=== PATIENT | female | born 2005 | race African-American/Black ===

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

== ENCOUNTER 2023-09-30 11:03 | Emergency (ER) | payer OTHER, SELFPAY ==
--- NOTE | ~2023-09-30 | CT_ITS ---
EXAMINATION: CT abdomen pelvis w con DATE: 09/30/2023 12:50 INDICATION: Abdominal pain and fever TECHNIQUE: Computed tomography (CT) of the abdomen and pelvis was performed with 100 mL Omnipaque-350 intravenous contrast. Automated exposure control and iterative reconstruction technique were employe d. The dose-length product was 785.62 mGy-cm. COMPARISON: 10/29/2020 FINDINGS: Lung bases are clear. Heart size is normal. No pericardial or pleural effusion. Liver, gallbladder, s pleen, pancreas, bilateral adrenal glands and kidneys are normal. Bowels including the appendix are n ormal. Bladder, anteverted uterus and bilateral adnexa are normal. No free intraperitoneal gas or flu id. No pathologically enlarged abdominal or pelvic lymphadenopathy. Mild thoracolumbar dextrocurvatur e. IMPRESSION: 1. No acute intra-abdominal/pelvic process. Reviewed, dictated and finalized at location A.
--- NOTE | 2023-09-30 11:13 | ED_ITS ---
HPI - Nausea/Vomiting/Diarrhea General Chief complaint: Nausea/Vomiting/Diarrhea Stated complaint: nausea Time Seen by Provider: 09/30/23 11:06 History of Present Illness HPI Narrative: 17-year-old female no medical problems presents to the emergency room for evaluation of abdominal pain. Patient was referred urgent care for evaluation of abdominal pain that she has had for 5 days. Pain is associated multiple episodes of vomiting. States that she had a fever 4 days ago. Patient denies any alleviating or aggravating factors. Related Data Home Medications Medication Instructions Recorded Confirmed ferrous sulfate 325 mg (65 mg mg 07/04/21 iron) tablet (FeroSul) azelastine 0.05 % eye drops drp 06/19/22 Allergies Allergy/AdvReac Type Severity Reaction Status Date / Time No Known Allergies Allergy Verified 11/24/22 14:05 Review of Systems Review of Systems: ROS unremarkable except for noted in HPI PMFSH Past Medical History Medical History Healthy female adolescent Social History Social History Smoking status: Never smoker Gender identity (if verbalized by the patient): Female Exam 2 Narrative: GENERAL: Well-appearing, well-nourished, no physical limitations, and in no acute distress. HEAD: Normocephalic, atraumatic. EYES: Conjunctivae normal, PERRLA and EOMI. CHEST: Clear to auscultation. No respiratory distress. No wheezes rales or rhonchi. HEART: Regular rate and rhythm. No murmur heard. Normal peripheral pulses. ABDOMEN: Soft, periumbilical tenderness, nondistended, normal active bowel sounds. BACK: No CVA tenderness EXTREMITIES: Normal range of motion. No edema. No clubbing or cyanosis SKIN: Warm, dry, no rash. No noted wounds NEURO: No focal deficits. Alert and oriented x3. MAEW. CN's II-XI intact bilaterally, normal gait PSYCH: Cooperative. Normal mood and affect. MDM - Nausea/Vomiting/Diarrhea Imaging Data Radiologist's impression: Impressions Abdomen/Pelvis CT 09/30/23 12:55 IMPRESSION: 1. No acute intra-abdominal/pelvic process. Discharge Plan Discharge Clinical Impression: Gastroenteritis Patient Disposition: Home, Self-Care Condition: Stable Instructions: Antibiotic Form, Acute Nausea and Vomiting (ED) Prescriptions: New ondansetron 4 mg tablet,disintegrating 4 mg PO Q8H Qty: 10 0RF No Action ferrous sulfate [FeroSul] 325 mg (65 mg iron) tablet azelastine 0.05 % drops amoxicillin-pot clavulanate 875-125 mg tablet 1 tablet PO Q12H 7 Days Qty: 14 0RF clindamycin HCl 300 mg capsule 300 mg PO Q8H Qty: 21 0RF methylprednisolone [Medrol (Isai)] 4 mg tablets,dose pack 4 mg PO DAILY Qty: 21 0RF fluticasone propionate [Flonase Allergy Relief] 50 mcg/actuation spray,suspension 1 spray intranasal DAILY Qty: 16 0RF Rx Instructions: administer into each nostril Follow-up/Referrals: Rochelle Hercules APRN [Advanced Practice Nurse] - Time of Disposition: 13:02
[2023-09-30 11:14] VITALS: BP 136/89; PULSE 97; RESP 20; O2SAT 100
[2023-09-30] MEDS: SODIUM CHLORIDE 0.9% IV 1,000 ML 999 ML IV CONT (11:30)
[2023-09-30 11:35] VITALS: BP 146/92; PULSE 95; RESP 20; TEMP 36.7; O2SAT 100
[2023-09-30 11:41] LABS: Basophils Percent Auto 0.5 % (0.2-1.2); Eosinophils Percent Auto 0.8 % (0-4.4); Hematocrit 37.4 % (37.0-47.0); Hemoglobin 10.7 g/dL (12.0-15.0); Immature Granulocyte Absolute 0.02 K/mm3 (0.00-0.031); Immature Granulocyte Percent A 0.5 % (0-0.5); Immature Platelet Fraction Pct 3.6 % (0.9-11.2); Lymphocytes Absolute Auto 1.32 K/mm3 (0.9-3.2); Lymphocytes Percent Auto 36.1 % (18.3-44.2); Mean Corpuscular HGB Conc 28.6 g/dl (32-36); Mean Corpuscular Hemoglobin 18.9 pg (26-34); Mean Platelet Volume 10.2 fl (7.4-10.4); Monocytes Absolute Auto 0.3 K/mm3 (0.1-0.6); Monocytes Percent Auto 7.1 % (2.6-8.5); Platelet Count Result 295 k/mm3 (150-375); Red Blood Count 5.67 M/mm3 (4.2-5.4); Red Cell Distribution Width 19.3 % (11.5-14.5); White Blood Count 3.7 K/mm3 (4.5-10.0)
[2023-09-30 11:50] LABS: Appearance Urine Cloudy (Clear); Bacteria Urine 2+ /hpf; Bilirubin Urine Negative (Negative); Blood Urine Negative (Negative); Color Urine Dark Yellow (Yellow); Glucose Urine UA Negative (Negative); Ketones Urine Trace mg/dL (Negative); Leukocyte Esterase Ur Trace LEU/UL (Negative); Nitrate Urine Negative (Negative); Protein Urine Trace mg/dL (Negative); RBC Urine 0-2 /hpf (0-2); Squamous Epithelial Cell Urine Many /hpf (Few); pH Urine 6.5 (5.0-9.0)
[2023-09-30 11:51] LABS: Add Urine Microscopic? YES; Specific Grav Ur 1.031 (1.001-1.035)
[2023-09-30 12:16] LABS: Anisocytosis 1+; Hypochromasia 1+; Microcytosis 1+ (NORMAL); Platelet Estimate Adequate (Adequate); Schistocytes Rare
[2023-09-30 12:32] LABS: Alanine Aminotransferase 12 U/L (6-35); Albumin Level 3.5 g/dL (3.7-5.6); Alkaline Phosphatase 64 U/L (45-116); Anion Gap 4 mmol/L (4-12); Aspartate Amino Transferase 16 U/L (14-36); Bilirubin,Total 0.4 mg/dL (0.2-1.3); Blood Urea Nitrogen 7 mg/dL (8-21); Carbon Dioxide 25 mmol/L (22-30); Chloride 109 mmol/L (98-107); Estimated Glomerular Filt Rate > 60; Glucose 92 mg/dL (65-110); Lipase 27 U/L (23-300); Potassium 3.7 mmol/L (3.4-5.0); Sodium 138 mmol/L (134-143)
[2023-09-30 13:09] VITALS: BP 136/78; PULSE 92; RESP 19; O2SAT 99
== END 2023-09-30 13:11 | disposition home or self-care (01) ==
PROVIDERS: Emergency Provider Nurse Practitioner Family
DX: K52.9 Noninfective gastroenteritis and colitis, unspecified (principal)
CPT/HCPCS: 36415; 74177; 80053; 81001; 81025; 83690; 85025; 85055; 87086; 96360; 99284; J7030; Q9967

== ENCOUNTER 2023-10-15 08:27 | Emergency (ER) | payer OTHER, SELFPAY ==
[2023-10-15 08:43] VITALS: BP 130/92; PULSE 96; RESP 18; TEMP 36.6; O2SAT 100
--- NOTE | 2023-10-15 09:21 | ED.ALCOHOL ---
HPI - Alcohol General Chief Complaint: Alcohol Stated Complaint: comments to PD wanting to harm self Time Seen by Provider: 10/15/23 09:12 Source: patient and EMS Mode of arrival: EMS Limitations: intoxication History of Present Illness HPI narrative: This is a 18 year old female that presents to the ER for suicidal ideation. Reportedly patient was in a dispute with her sister. PD was called. She reported some suicidal thoughts which prompted them to bring her in for evaluation. Reports no suicidal ideation currently. Does report history of overdose attempt on pills. She does not currently take any medications for anxiety or depression. Patient had been drinking alcohol last night. No previous psychiatric hospitalizations. Related Data Home Medications Medication Instructions Recorded Confirmed ferrous sulfate 325 mg (65 mg mg 07/04/21 iron) tablet (FeroSul) azelastine 0.05 % eye drops drp 06/19/22 Allergies Allergy/AdvReac Type Severity Reaction Status Date / Time No Known Allergies Allergy Verified 11/24/22 14:05 Review of Systems Review of Systems: CONSTITUTIONAL: Denies fever GASTROINTESTINAL: Denies abdominal pain, nausea, vomiting PSYCHIATRIC: Reports depression. All systems reviewed & are unremarkable except as noted in HPI and below PMFSH Past Medical History Medical History Healthy female adolescent Social History Social History (Updated 10/15/23 @ 09:26 by Lary Yousif PA-C) Smoking status: Never smoker Alcohol intake: current Gender identity (if verbalized by the patient): Female Exam Narrative: GENERAL: Well-appearing, well-nourished, and in no acute distress. HEAD: Normocephalic, atraumatic. EYES: EOMI. CHEST: No respiratory distress. HEART: Regular rate EXTREMITIES: Normal range of motion. No edema. SKIN: Warm, dry, no rash. NEURO: No focal deficits. Alert and oriented x3. PSYCH: Normal mood and affect Course Course Emergency Course: patient is medically cleared for evaluation by crisis Vital Signs Vital signs: Vital Signs Temperature 97.9 F 10/15/23 08:43 Pulse Rate 96 10/15/23 08:43 Respiratory Rate 18 10/15/23 08:43 Blood Pressure 130/92 H 10/15/23 08:43 Pulse Oximetry 100 10/15/23 08:43 Oxygen Delivery Room Air 10/15/23 08:43 Temperature 98.6 F 10/15/23 15:20 Pulse Rate 78 10/15/23 15:20 Respiratory Rate 16 10/15/23 15:20 Blood Pressure 113/69 10/15/23 15:20 Pulse Oximetry 99 10/15/23 15:20 Oxygen Delivery Room Air 10/15/23 08:43 MDM - Alcohol MDM Narrative Medical decision making narrative: Patient presents to the emergency department with reported suicidal ideations. Patient was intoxicated upon arrival. Once sober she denied any thoughts of harming herself her acting on it. Her vitals are stable. Alcohol level initially 217. No other concerning findings on laboratory evaluation. Patient was evaluated by crisis. Safety plan is in place and she was given resources. She was given warnings to return to the ER Differential Diagnosis Differential diagnosis: Likely alcohol intoxication and other (suicidal ideation, depression, anxiety) Lab Data Attestation: I reviewed the patient's lab results. 10/15/23 09:16 10/15/23 09:16 Labs: Lab Results 10/15/23 10/15/23 10/15/23 Range/Units 09:16 09:17 09:19 WBC 5.0 (4.5-10.0) K/mm3 RBC 5.76 H (4.2-5.4) M/mm3 Hgb 11.0 L (12.0-15.0) g/dL Hct 38.8 (37.0-47.0) % MCV 67.4 L (80-100) fl MCH 19.1 L (26-34) pg MCHC 28.4 L (32-36) g/dl RDW 20.1 H (11.5-14.5) % Plt Count 330 (150-375) k/mm3 MPV 9.4 (7.4-10.4) fl Immature Gran % (Auto) 0.4 (0-0.5) % Neut % (Auto) 52.2 (45.5-73.1) % Lymph % (Auto) 38.8 (18.3-44.2) % [place] % (Auto) 8.2 (2.6-8.5) % Eos % (Auto) 0.2 (0-4.4) % Baso % (Auto) 0.2
[2023-10-15 09:25] LABS: Basophils Percent Auto 0.2 % (0.2-1.2); Eosinophils Percent Auto 0.2 % (0-4.4); Hematocrit 38.8 % (37.0-47.0); Immature Granulocyte Absolute 0.02 K/mm3 (0.00-0.031); Immature Granulocyte Percent A 0.4 % (0-0.5); Lymphocytes Absolute Auto 1.94 K/mm3 (0.9-3.2); Lymphocytes Percent Auto 38.8 % (18.3-44.2); Mean Corpuscular HGB Conc 28.4 g/dl (32-36); Mean Corpuscular Hemoglobin 19.1 pg (26-34); Mean Corpuscular Volume 67.4 fl (80-100); Mean Platelet Volume 9.4 fl (7.4-10.4); Monocytes Absolute Auto 0.4 K/mm3 (0.1-0.6); Monocytes Percent Auto 8.2 % (2.6-8.5); Neutrophils Absolute Auto 2.6 K/mm3 (1.3-6.7); Neutrophils Percent Auto 52.2 % (45.5-73.1); Platelet Count Result 330 k/mm3 (150-375); Red Blood Count 5.76 M/mm3 (4.2-5.4); Red Cell Distribution Width 20.1 % (11.5-14.5)
[2023-10-15 09:39] LABS: Ethanol 217 mg/dL (<10)
[2023-10-15 09:40] LABS: Alanine Aminotransferase 11 U/L (6-35); Albumin Level 4.5 g/dL (3.5-5.1); Alkaline Phosphatase 72 U/L (38-126); Anion Gap 9 mmol/L (4-12); Aspartate Amino Transferase 20 U/L (14-36); Bilirubin,Total 0.4 mg/dL (0.2-1.3); Blood Urea Nitrogen 7 mg/dL (7-17); Calcium 8.7 mg/dL (8.4-10.2); Carbon Dioxide 24 mmol/L (22-30); Chloride 112 mmol/L (98-107); Estimated Glomerular Filt Rate > 60; Glucose 94 mg/dL (65-110); Potassium 4.2 mmol/L (3.4-5.0); Sodium 145 mmol/L (137-145)
[2023-10-15 09:54] LABS: Hypochromasia 1+; Platelet Estimate Adequate (Adequate); Poikilocytosis 1+
[2023-10-15 09:55] LABS: Anisocytosis 1+; Schistocytes Rare
[2023-10-15 10:03] LABS: Appearance Urine Clear (Clear); Bilirubin Urine Negative (Negative); Blood Urine Negative (Negative); Color Urine Yellow (Yellow); Glucose Urine UA Negative (Negative); Ketones Urine Negative (Negative); Leukocyte Esterase Ur Negative LEU/UL (Negative); Nitrate Urine Negative (Negative); Protein Urine Negative (Negative); Specific Grav Ur 1.011 (1.001-1.035); Urobilinogen Urine 0.2 mg/dL (<2.0); pH Urine 5.5 (5.0-9.0)
[2023-10-15 10:03] LABS: Influenza A QL RT-PCR Negative (Negative); Influenza B QL RT-PCR Negative (Negative); RSV RNA, RT-PCR Negative (Negative); SARS-CoV-2 RNA PCR Negative (Negative)
[2023-10-15 10:50] LABS: Barbiturate Screen Urine Negative (Negative); Benzodiazepines Screen Urine Negative (Negative)
[2023-10-15 10:51] LABS: Cannabinoid Screen Urine Negative (Negative); Cocaine Screen Urine Negative (Negative); Methadone Screen Urine Negative (Negative); Opiate Screen Urine Negative (Negative); Phencyclidine Screen Urine Negative (Negative)
[2023-10-15 10:54] LABS: Amphetamine Screen Urine Negative (Negative)
[2023-10-15 11:55] LABS: Add Urine Microscopic? NO
[2023-10-15 15:20] VITALS: BP 113/69; PULSE 78; RESP 16; TEMP 37; O2SAT 99
--- NOTE | 2023-10-15 15:25 | PC.NURSE ---
Patient gave verbal consent to update mom about pt condition.
[2023-10-15 17:00] LABS: Ethanol 83 mg/dL (<10)
--- NOTE | 2023-10-15 17:11 | PC.NURSE ---
Crisis contacted to evaluate patient.
== END 2023-10-15 20:07 | disposition home or self-care (01) ==
PROVIDERS: Family Medicine; Emergency Provider Physician Assistant
DX: R45.851 Suicidal ideations (principal); F10.920 Alcohol use, unspecified with intoxication, uncomplicated; Y90.7 Blood alcohol level of 200-239 mg/100 ml; Z11.52 Encounter for screening for COVID-19
CPT/HCPCS: 36415; 80053; 80307; 81003; 81025; 84443; 85025; 87637; 99284

== ENCOUNTER 2024-12-21 01:26 | Emergency (ER) | payer OTHER, SELFPAY ==
[2024-12-21] VITALS (15 sets, daily range): BP systolic 103–132; BP diastolic 59–89; PULSE 66–109; RESP 16–24; TEMP 36–36.6; O2SAT 98–100
--- NOTE | 2024-12-21 01:38 | ECG_ITS ---
Test Date: 2024-12-21 02:05:31 Measurements Intervals [place] Rate: 104 P: 41 MA: 140 QRS: 34 QRSD: 92 T: 32 QT: 313 QTc: 413 Interpretive Statements SINUS TACHYCARDIA POSSIBLE LEFT ATRIAL ENLARGEMENT POSSIBLE ANTERIOR MYOCARDIAL INFARCTION , OF INDETERMINATE AGE BASELINE ARTIFACT- I, III, AVL, V2 ABNORMAL ECG No previous ECG available for comparison Electronically Signed On 12-21-2024 06:23:34 CDT by Vinh Maher D.O.
[2024-12-21 01:47] LABS: Hematocrit 35.3 % (37.0-47.0); Hemoglobin 10.2 g/dL (12.0-15.0); Immature Granulocyte Percent A 0.2 % (0-0.5); Lymphocytes Absolute Auto 1.44 K/mm3 (0.9-3.2); Mean Corpuscular HGB Conc 28.9 g/dl (32-36); Mean Corpuscular Hemoglobin 19.2 pg (26-34); Mean Corpuscular Volume 66.6 fl (80-100); Nucleated Red Blood Cells Absolute Auto 0.000 K/mm3 (0.0-0.012); Nucleated Red Blood Cells Perc 0.0 % (0.0-0.2); Platelet Count Result 226 k/mm3 (150-375); Red Blood Count 5.30 M/mm3 (4.2-5.4); White Blood Count 4.7 K/mm3 (4.5-10.0)
[2024-12-21 02:00] LABS: Alanine Aminotransferase 13 U/L (6-35); Albumin Level 4.3 g/dL (3.5-5.1); Alkaline Phosphatase 78 U/L (38-126); Anion Gap 10 mmol/L (4-12); Aspartate Amino Transferase 18 U/L (14-36); Band Neutrophils Percent 0 % (0-6); Bilirubin,Total 0.5 mg/dL (0.2-1.3); Blood Urea Nitrogen 3 mg/dL (7-17); Calcium 9.4 mg/dL (8.4-10.2); Carbon Dioxide 21 mmol/L (22-30); Chloride 104 mmol/L (98-107); Estimated CRCL calculation 143 ml/min; Estimated Glomerular Filt Rate > 60; Glucose 101 mg/dL (65-110); Hypochromasia 1+; Ovalocytes 1+; Potassium 3.8 mmol/L (3.4-5.0); Schistocytes None Seen; Sodium 135 mmol/L (137-145); Total Protein 7.6 g/dL (6.3-8.2)
[2024-12-21 02:02] LABS: Acetaminophen < 10 ug/mL (10-30); Salicylate < 1.0 mg/dL (2-20)
[2024-12-21 02:05] LABS: Add Urine Microscopic? NO; Appearance Urine Clear (Clear); Glucose Urine UA Negative (Negative); Leukocyte Esterase Ur Negative LEU/UL (Negative); Nitrate Urine Negative (Negative); Specific Grav Ur 1.007 (1.001-1.035)
[2024-12-21 02:16] LABS: BEDSIDEPREGUCG Negative (Negative)
[2024-12-21 02:20] LABS: Cannabinoid Screen Urine Negative (Negative)
[2024-12-21 02:32] LABS: Thyroid Stimulating Hormone 3.110 uIU/mL (0.465-4.680)
--- OUTSIDE RECORDS SUMMARY | 2024-12-21 02:37 | XMS_ITS | Clinical Summary ---
Author Organization [facility] [place] [address] Address [address] [place] [id number] Care Team Providers Care Fabrication And Assembly Supervisor Name Role Phone Rochelle Hercules CONSTRUCTION CRAFT LABORER Unavailable [phone] Florentin Kincaid NP Primary Care Provider [phone] Allergies No known active allergies Medications albuterol HFA (PROVENTIL HFA,VENTOLIN HFA,PROAIR HFA) 90 mcg/actuation inhalerIndicati ons:Acute Asthma Attack Inhale 4 puffs every 4 (four) hours as needed for wheezing or shortness of breath 1 Inhaler 1 Active cyproheptadine (PERIACTIN) 4 mg tablet Take 1 tablet (4 mg total) by mouth nightly 30 tablet 3 2 Active Additional Information Patient not taking.Reported on 08/27/2021 Active Problems Problem Noted Date Diagnosed Date 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 Backache 12/20/2020 Irritable bowel syndrome 11/15/2020 Hematochezia 11/06/2020 Overview (11/07/2020): Added automatically from request for surgery [id number] See plan under erythematous gastropathy with eosinophilia Assessment & Plan (11/09/2020 1:23 PM CDT): See plan under erythematous gastropathy with eosinophilia Assessment & Plan (11/08/2020 1:44 PM CDT): See plan under erythematous gastropathy with eosinophilia Assessment & Plan (11/07/2020 12:51 PM CDT): Added automatically from request for surgery [id number] See plan under erythematous gastropathy with eosinophilia Abdominal pain, generalized 11/06/2020 Overview (11/07/2020): Added automatically from request for surgery [id number] For pain, (1) Tylenol, (2) Benadryl IV or PO. Avoid NSAIDs given gastritis. Assessment & Plan (11/09/2020 1:24 PM CDT): Abdominal pain may be due to small bowel inflammation vs functional vs biliary colic vs spasms. For pain, (1) Tylenol, (2) Levsin, (3) NS bolus. Can use peppermint or Maalox (without Benadryl) PRN. Avoid NSAIDs given gastritis. Consider psychology outpatient for relaxation, biofeedback Assessment & Plan (11/08/2020 1:43 PM CDT): Added automatically from request for surgery [id number] For pain, (1) Tylenol, (2) Benadryl IV or PO. Avoid NSAIDs given gastritis. Assessment & Plan (11/07/2020 12:50 PM CDT): Added automatically from request for surgery [id number] For pain, (1) Tylenol, (2) Benadryl IV or PO. Avoid NSAIDs given gastritis. Vomiting 10/31/2020 Overview (11/07/2020): Paola has had 3 weeks of nausea/vomiting and is currently unable to keep down food or pills, despite taking twice daily Zofran. This could be explained by her gastritis, but could also be cyclical vomiting, esophageal dysmotility, or intermittent volvulus. The latter is less likely due to her normal Upper GI. IV or dissolvable tablet Zofran 4mg q6h PRN for nausea mIVR (D5LR) BMP showed normal electrolytes Assessment & Plan (11/09/2020 1:22 PM CDT): Paola has had 3 weeks of nausea/vomiting and is currently unable to keep down food or pills, despite taking twice daily Zofran. This could be explained by her gastritis, but could also be cyclical vomiting, esophageal dysmotility, or intermittent volvulus. The latter is less likely due to her normal Upper GI. IV or dissolvable tablet Zofran 4mg q6h PRN for nausea mIVR (D5LR) Assessment & Plan (11/08/2020 1:45 PM CDT): Paola has had 3 weeks of nausea/vomiting and is currently unable to keep down food or pills, despite taking twice daily Zofran. This could be explained by her gastritis, but could also be cyclical vomiting, esophageal dysmotility, or intermittent volvulus. The latter is less likely due to her normal Upper GI. IV or dissolvable tablet Zofran 4mg q6h PRN for nausea mIVR (D5LR) BMP showed normal electrolytes Assessment & Plan (11/07/2020 1:40 PM CDT): Paoal has had 3 weeks of nausea/vomiting and is currently unable to keep down food or pills, despite taking twice daily Zofran. This could be explained by her gastritis, but could also be cyclical vomiting, esophageal dysmotility, or intermittent volvulus. The latter is less likely due to her normal Upper GI. IV or dissolvable tablet Zofran 4mg q6h PRN for nausea mIVR (D5LR) BMP showed normal electrolytes Assessment & Plan (11/01/2020 8:46 AM CDT): Paola is a 15 year old girl with history of exercise-induced asthma who presents with 2 weeks of nausea, vomiting, mid-thoracic back pain, and epigastric pain. Her symptoms started acutely and without clear inciting factor on 10/16/20. Since then, she has had episodic severe mid-thoracic back pain followed by abdominal pain, and nausea/emesis. Between episodes of pain, she has some chronic nausea, which is only sometimes helped by Zofran. She has had 1-5 episodes of emesis (not regurgitation) each day, has been unable to tolerate po, and was dehydrated on presentation. Workup thus far has included abdominal ultrasound with mild steatosis (likely due to NAFLD and not contributory), and KUB that showed a dilated loop of bowel followed by CT that showed this loop of bowel was normal sigmoid colon. Intermittent volvulus may cause her symptoms so will obtain UGI today 11/[address] showed no malrotation. Other possible etiologies for back pain, abdominal pain, and nausea/vomiting include esophageal spasm (most likely). These 3 symptoms could also be linked by systemic illness like malignancy or sarcoidosis (her mother has sarcoidosis and she has not yet received dedicated chest imaging). It is also possible her back pain is due to a separate MSK issue. Differential for abdominal pain and intermittent nausea/vomiting includes gastroparesis, gastric outlet obstruction, cyclical vomiting, esophagitis or esophageal dysmotility. Plan: - mIVF - regular diet - for pain, (1) Tylenol, (2) Benadryl IV or PO, (3) morphine. Avoid NSAIDs given epigastric tenderness - continue to hold home Prevacid - UGI on 11/01 with NPO at midnight - if UGI is normal, EGD 11/02 - recommend lifestyle modifications for NAFLD and consider HbA1c to assess for pre-diabetes Assessment & Plan (10/31/2020 7:23 PM CDT): Paola is a 15 year old girl with history of exercise-induced asthma who presents with 2 weeks of nausea, vomiting, mid-thoracic back pain, and epigastric pain. Her symptoms started acutely and without clear inciting factor on 10/16/20. Since then, she has had intermittent mid-thoracic back pain, abdominal pain, and nausea/emesis. She has had 1-5 episodes of emesis (not regurgitation) each day, and her emesis turned forest green a few days ago. Her nausea is only somewhat helped by Zofran. Based on history, it sounds like her nausea and abdominal pain are exacerbated by food and liquid intake, but are still present even if she is not eating. On exam today, she has no complaints. Workup thus far has included abdominal ultrasound with mild steatosis (likely due to NAFLD and not contributory), KUB that showed a dilated loop of bowel followed by CT that showed no dilation or explanation for the dilation that had been seen on XR. Malrotation/volvulus can cause transiently dilated loop of bowel so she will need an UGI. Other possible etiologies for back pain, abdominal pain, and nausea/vomiting include chronic pancreatitis. These 3 symptoms could also be linked by systemic illness like malignancy or sarcoidosis (her mother has sarcoidosis and she has not yet received dedicated chest imaging). It is also possible her back pain is due to a separate MSK issue. Differential for abdominal pain and intermittent nausea/vomiting includes gastroparesis, gastric outlet obstruction, cyclical vomiting, cannabinoid hyperemesis. Less likely esophagitis or esophageal dysmotility since she endorses no dysphagia or odynophagia. Plan: - mIVF - regular diet - for pain, (1) Tylenol, (2) oxycodone. Avoid NSAIDs given epigastric tenderness - labs on admission: CBC, CMP, lipase, ESR, CRP, thyroid function tests, Celiac studies, iron profile and ferritin, urine b-hcg, UDS, covid-19 test - UGI on 11/01 with NPO at midnight - recommend lifestyle modifications for NAFLD and consider HbA1c to assess for pre-diabetes - if she has acute pain overnight, get obstructive series. Deferred on admission because she was so well-appearing. 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 She has normal Eosinophil count on CBC and H. Pylori urease screen was negative. DDX is Eosinophilic gastritis vs. Crohn's disease. Colonoscopy today was normal and biopsies sent, making Crohn's less likely. 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 MRE 11/09. NPO @ [place] 11/08. Swallowed budesonide (11/08 - ) IV Protonix 40mg daily Assessment & Plan (11/09/2020 1:26 PM CDT): Paola's recent biopsy from her EGD showed mildly increased eosinophils in her duodenum (70/HPF) and stomach body (40/HPF) with normal antrum and esophagus. She has normal Eosinophil count on CBC and H. Pylori urease screen was negative. DDX is Eosinophilic gastritis vs. Crohn's disease. Colonoscopy 11/08/20 was normal and biopsies sent, making Crohn's less likely. 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 MRE today 11/09 Swallowed budesonide (11/08 - ) Prevacid 30mg BID (11/09 - ); s/p Protonix Assessment & Plan (11/08/2020 1:44 PM CDT): Paola's recent biopsy from her EGD showed mildly increased eosinophils in her duodenum (70/HPF) and stomach body (40/HPF) with normal antrum and esophagus. She has normal Eosinophil count on CBC and H. Pylori urease screen was negative. DDX is Eosinophilic gastritis vs. Crohn's disease. Colonoscopy today was normal and biopsies sent, making Crohn's less likely. 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 MRE 11/09. NPO @ [place] 11/08. Swallowed budesonide (11/08 - ) IV Protonix 40mg daily Assessment & Plan (11/07/2020 12:51 PM CDT): Paola's recent biopsy from her EGD showed mildly increased eosinophils in her duodenum (70/HPF) and stomach body (40/HPF) with normal antrum and esophagus. She has normal Eosinophil count on CBC and H. Pylori urease screen was negative. This could represent an allergic process. Eosinophilic gastritis is a rare condition (10: 100,000) that is more common in people with a history of allergies, eczema, and seasonal asthma. It presents as a triad of eosinophilic infiltration of segments of the GI tract, abnormalities of GI function (nausea/vomiting in this patient), and exclusion of other diseases with peripheral eosinophilia. Muscle layer involvement could explain abdominal pain. It is treated with allergen elimination. Duodenal eosinophils are also seen in Crohn's disease. Her microcytic anemia could be explained by microscopic blood loss or ileal involvement, which is a common site of inflammation in Crohn's disease.. This patient's normal ESR/CRP make this diagnosis less likely, but her recent blood per rectum makes it more likely. IV Protonix 40mg daily Colonoscopy to evaluate extent of small bowel disease/Crohn's. Colonoscopy prep: ? 34g Miralax q2h while awake. Attempt PO and may place NG tube if patient does not tolerate. ? 20mg Dulcolax q6h ? Clear liquid diet ? Covid swab ? 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 She is failing PO medical management due to persistence of emesis. She's not had weight loss, and denies increased NSAID use. H pylori testing was negative. Considerations include eosinophilic gastroenteritis or crohn's disease. She needs a colonoscopy for further evaluation. Plan: - protonix 40mg IV daily - prep for colonoscopy on 11/08: start w miralax 34g q2h while awake, dulcolax 10mg tablet x2 6h apart; if not able to tolerate due to emesis would consider NGT placement for go-lytely - mIVF, clear liquid diet - BMP, COVID swab - pain: Tylenol, bolus/benadryl - antiemetic: zofran Assessment & Plan (11/01/2020 8:46 AM CDT): Please see A/P for Vomiting. In addition, CT of cervical and thoracic spine was reassuring against fracture. Could consider lidocaine patch or heading pad. Assessment & Plan (10/31/2020 6:54 PM CDT): Please see A/P for Vomiting. In addition, CT of cervical and thoracic spine was reassuring against fracture. Could consider lidocaine patch or heading pad. Hepatic steatosis 10/31/2020 Assessment & Plan (11/01/2020 8:46 AM CDT): Please see A/P for Vomiting Assessment & Plan (10/31/2020 6:53 PM CDT): Please see A/P for Vomiting Asthma 10/24/2020 Eczema 10/24/2020 Obese 12/15/2019 Microcytic anemia Overview (11/08/2020): Microcytic anemia found at prior admission with low iron. Possible etiology could be microscopic blood loss 2/2 Crohn's disease. -Can trend as OP -Consider IV iron Assessment & Plan (11/09/2020 1:23 PM CDT): Microcytic anemia found at prior admission with low iron. Possible etiology could be microscopic blood loss 2/2 Crohn's disease. -Can trend as OP -Consider IV iron Assessment & Plan (11/08/2020 1:44 PM CDT): Microcytic anemia found at prior admission with low iron. Possible etiology could be microscopic blood loss 2/2 Crohn's disease. -Can trend as OP -Consider IV iron Assessment & Plan (11/07/2020 1:39 PM CDT): Microcytic anemia found at prior admission with low iron. Possible etiology could be microscopic blood loss 2/2 Crohn's disease. -Can trend as OP -Consider IV iron Immunizations Immunization Administration Dates Next Due DTaP 03/06/2008,04/22/2004 DTaP / Hep B / IPV 09/10/2005 DTaP / HiB / IPV 09/10/2005,02/18/2004, 4 HPV9 06/07/2017,01/14/2016 Hep A, Pediatric 04/28/2011,04/21/2010 Hep B, Adolescent or Pediatric 09/10/2005,2003,2003 HiB 09/10/2005 IPV 03/06/2008 Influenza, Quadrivalent, Spl it, Preservative Free, Intramuscular 06/07/2017 MMR 03/06/2008 MMRV 03/06/2008,09/10/2005 Meningococcal B, OMV (Bexsero) 01/10/2020 Meningococcal MCV4P (Menactra) 01/10/2020,2014 PPD TEST 07/22/2023 Pneumococcal Conjugate 7-Valent 09/11/19 06,04/22/2004,02/18/2004,12/18 Tdap 11/06/2014 Varicella 03/06/2006 Surgical History Surgery Date Site/Laterality Comments COLONOSCOPY W/ BIOPSIES 11/14/2020 - 12/14/2020 UPPER GASTROINTESTINAL ENDOSCOPY 11/14/2020 - 12/14/2020 Medical History Medical History Date Comments Eczema Anemia Mild exercise-induced asthma GERD (gastroesophageal reflux disease) Covid-19 04/2021 Covid-19 04/2020 Family History Medical History Relation Name Comments Gallbladder disease Maternal Grandmother Anemia Mother Gallbladder disease Mother Needed c holecystectomy at 30s due to fever, severe pain Sarcoidosis Mother No Known Problems Sister Relation Name Status Comments Maternal Grandmother Mother Sister Social History Tobacco Use Types Packs/Day Years Used Date Smoking Tobacco: Never Smokeless Tobacco: Never Tobacco Cessation:Counseling Given: Not Answered Comments No Sex and Gender Information Value Date Recorded Sex Assigned at Not on file Legal Sex Female 9:47 PM CDT Gender Identity Not on file Sexual Orientation Not on file Obstetrics History Last Filed Vital Signs Vital Sign Reading Time Taken Comments Blood Pressure 116/81 07/24/2023 3:35 PM SERVICES ADVISOR Pulse 101 07/24/2023 3:35 PM SERVICES ADVISOR Temperature 37 C (98.6 F) 07/24/2023 3:35 PM SERVICES ADVISOR Respiratory Rate 18 07/24/2023 3:35 PM SERVICES ADVISOR Oxygen Saturation 100% 07/24/2023 3:35 PM SERVICES ADVISOR Inhaled Oxygen Concentration - - Weight 102.3 kg (225 lb 9.6 oz) 07/24/2023 3:35 PM SERVICES ADVISOR Height 170.2 cm (5' 7) 07/24/2023 3:35 PM SERVICES ADVISOR Body Mass Index 35.33 07/24/2023 3:35 PM SERVICES ADVISOR Plan of Treatment Health Maintenance Due Date Last Done Comments Cervical Cancer Screening 2003 Depression Screening 2003 Hepatitis C Screening 2003 Pneumococcal vaccine <65 (1 of 1 - PPSV23) 10/14/2009 09/10/2005, 04/22/2004, 02/18/2004, Additional history exists Meningococcal B Vaccine (2 o f 2 - Bexsero SCDM 2-dose series) 07/12/2020 01/10/2020 Regular Well Visit/Exam 18-64 10/14/2021 Covid-19 Vaccine (5 - 2023-2 5 season) 2024 01/30/2022, 08/13/2021, 11/15/2020, Additional history exists DTaP/Tdap/Td Vaccine (7 - Td or Tdap) 11/06/2024 11/06/2014, 03/06/2008, 09/10/2005, Additional history exists Influenza Vaccine (#1) 2025 06/07/2017 Varicella Vaccines Completed 03/06/2008, 1 , 09/10/2005 HPV Vaccines Completed 06/07/2017, 01/14/2016 Meningococcal Vaccine Completed 01/10/2020, 015 Insurance Member Subscriber Plan / Payer (Ef fective 2021-Present) Name:Paola Weller Relation to Subscriber:Self Name:Paola Weller Payer ID:[id number] (NAIC) Group ID:Not on file Type:MEDICAID RISK OTHER Address: ATTN: CLAIMS DEPT [address] [facility] [place] [id number] [place] [address] Advance Directives For more information, please contact: [phone] Documents on File Type Date Recorded Patient Cell Pourer Expl anation ADVANCE DIRECTIVE 11/05/2020 9:45 AM * Full Code (Latest Code Status on File) Date Activated Date Inactivated Comments 11/07/2020 7:12 AM 11/10/2020 5:58 PM * Full Code Date Activated Date Inactivated Comments 10/31/2020 3:56 PM 11/02/2020 8:00 PM Care Teams Fabrication And Assembly Supervisor Relationship Specialty Start Date End Date Florentin Kincaid NP [address] [facility] [address] [place] [address] PCP - General 09/01/21 Rochelle Hercules NP Nurse Practitioner 03/18/21
--- NOTE | 2024-12-21 02:39 | PC.NURSE ---
This RN spoke with Ewa from poison control who advised to provide symptomatic and supportive care. LINDSEY Mcneil stated the half life of prednisone is 2.5-3 hours and the most prominent symptoms would be GI related.
--- NOTE | 2024-12-21 02:41 | ED.OVERDOSE ---
HPI - Overdose General Chief Complaint: Overdose <Mona Montague MD - Last Filed: 12/21/24 07:19> Stated Complaint: OD ON PREDNISONE <Mona Montague MD - Last Filed: 12/21/24 07:19> Time Seen by Provider: 12/21/24 02:14 <Mona Montague MD - Last Filed: 12/21/24 07:19> Source: patient and RN notes reviewed <Mona Montague MD - Last Filed: 12/21/24 07:19> Mode of arrival: EMS <Mona Montague MD - Last Filed: 12/21/24 07:19> History of Present Illness HPI Narrative: Patient presents with report of intentional overdose on prednisone. By report the prednisone had been prescribed 3 years ago and thus was . She reports taking 60 tablets of 40 mg prednisone although will not specify what time she did this. She had reported that she had been drinking alcohol since 8:00 p.m.. She states that she got in a disagreement with family, everybody according to patient but PD paperwork notes that it was an argument with her mother as her mother told her to move out. When asked what her goal of taking this was cauterized she shrugged. She has previous suicide attempt. EMS had administered a mg of morphine in route. She notes that she is nauseated and has a headache but denies any diarrhea. <Mona Montague MD - Last Filed: 12/21/24 07:19> Related Data Home Medications: Home Medications ?Medication ?Instructions ?Recorded ?Confirmed ?Last Taken ?Type ferrous sulfate 325 mg (65 mg mg 07/04/21 Unknown History iron) tablet (FeroSul) azelastine 0.05 % eye drops drp 06/19/22 Unknown History <Mona Montague MD - Last Filed: 12/21/24 07:19> Allergies/Adverse Reactions: Allergies Allergy/AdvReac Type Severity Reaction Status Date / Time No Known Allergies Allergy Verified 11/24/22 14:05 <Mona Montague MD - Last Filed: 12/21/24 07:19> [facility] Past Medical History Medical History: Medical History (Updated 08/07/25 @ 07:03 by Mona Montague MD) History of suicide attempt Alcoholic intoxication <Mona Montague MD - Last Filed: 12/21/24 07:19> Social History Social History: Social History Smoking status: Never smoker Alcohol intake: current Living arrangements: with family Additional living arrangements comments: mother Gender identity (if verbalized by the patient): Female <Mona Montague MD - Last Filed: 12/21/24 07:19> Exam Narrative: GENERAL: Well-appearing, well-nourished, and in no acute distress. Sleepy but protecting airway. HEAD: Normocephalic, atraumatic. EYES: Non injected, non icteric ENT: No epistaxis. Gross auditory acuity intact. NECK: Supple. No meningismus. CHEST: No respiratory distress. HEART: Regular rate and rhythm. . ABDOMEN: Soft, nondistended. No rigidity or guarding. Not peritoneal EXTREMITIES: Normal range of motion. SKIN: Warm, dry, no rash. NEURO: No focal deficits. Alert and oriented. Answering questions. Following commands but not answering all questions, seems volitional. PSYCH: Appearance: Well kempt. Behavior: Calm, Mood is congruent with affect. <Mona Montague MD - Last Filed: 12/21/24 07:19> Course Course Emergency Course: Accepted to [facility] for psychiatric care by Dr. Mason. <River Khan MD - Last Filed: 12/21/24 11:51> Vital Signs Vital signs: Vital Signs Temperature 96.8 F L 12/21/24 01:27 Pulse Rate 109 H 12/21/24 01:27 Respiratory Rate 19 12/21/24 01:27 Blood Pressure 130/89 12/21/24 01:27 Pulse Oximetry 100 12/21/24 01:27 Oxygen Delivery Room Air 12/21/24 01:27 Temperature 97.6 F 12/21/24 06:46 Pulse Rate 66 12/21/24 06:46 Respiratory Rate 16 12/21/24 06:46 Blood Pressure 112/70 12/21/24 06:46 Pulse Oximetry 98 12/21/24 06:46 Oxygen Delivery Room Air 12/21/24 01:36 <Mona Montague MD - Last Filed: 12/21/24 07:19> Vital Signs Temperature 96.8 F L 12/21/24 01:27 Pulse Rate 109 H 12/21/24 01:27 Respiratory Rate 19 12/21/24 01:27 Blood Pressure 130/89 12/21/24 01:27 Pulse Oximetry 100 12/21/24 01:27 Oxygen Delivery Room Air 12/21/24 01:27 Temperature 97.6 F 12/21/24 06:46 Pulse Rate 66 12/21/24 06:46 Respiratory Rate 16 12/21/24 06:46 Blood Pressure 112/70 12/21/24 06:46 Pulse Oximetry 98 12/21/24 06:46 Oxygen Delivery Room Air 12/21/24 01:36 <River Khan MD - Last Filed: 12/21/24 11:51> MDM - Overdose MDM Narrative Medical decision making narrative: Patient presents after intentional overdose and prednisone. She had stated she took 60 tablets of 40 mg strength that had been prescribed 3 years ago, questionably . Of note, prescriptions are reviewed and show that she had been prescribed 4 mg , #21 pills, at one point. 60 tablets of 40mg seems to be an unlikely dose/amount that would even be prescribed. In the emergency department she is afebrile with vital signs notable for tachycardia. Microcytic anemia, stable previous. Per [facility] , 1/2 life is 2.5-3 hours and to watch for GI upset. (RN did a note for this but I am unable to see it; similarly preg test negative but it does not cross over despite me being able to see both of these documented on her screen) Patient is now medically clear for evaluation by psych/crisis. PD had filled out involuntary paperwork which is in chart. Patient signed out to oncoming ED doctor pending evaluation and dispo determination. <Mona Montague MD - Last Filed: 12/21/24 07:19> Differential Diagnosis Differential diagnosis: Likely other (overdose, suicide) <Mona Montague MD - Last Filed: 12/21/24 07:19> Medical Records Attestation: I reviewed the patient's medical records. <Mona Montague MD - Last Filed: 12/21/24 07:19> Medical records narrative: ED visit 10/14/24 reviewed: This is a 18 year old female that presents to the ER for suicidal ideation. Reportedly patient was in a dispute with her sister. PD was called. She reported some suicidal thoughts which prompted them to bring her in for evaluation. Reports no suicidal ideation currently. Does report history of overdose attempt on pills. She does not currently take any medications for anxiety or depression. Patient had been drinking alcohol last night. No previous psychiatric hospitalizations. <Mona Montague MD - Last Filed: 12/21/24 07:19> Lab Data Attestation: I reviewed the patient's lab results. <Mona Montague MD - Last Filed: 12/21/24 07:19> Result diagrams: 12/21/24 01:40 12/21/24 01:40 <Mona Montague MD - Last Filed: 12/21/24 07:19> Labs: Lab Results 12/21/24 12/21/24 12/21/24 Range/Units 01:40 01:53 02:13 WBC 4.7 (4.5-10.0) K/mm3 RBC 5.30 (4.2-5.4) M/mm3 Hgb 10.2 L (12.0-15.0) g/dL Hct 35.3 L (37.0-47.0) % MCV 66.6 L (80-100) fl MCH 19.2 L (26-34) pg MCHC 28.9 L (32-36) g/dl RDW 17.9 H (11.5-14.5) % Plt Count 226 (150-375) k/mm3 MPV 9.2 (7.4-10.4) fl Immature Gran % (Auto) 0.2 (0-0.5) % Neut % (Auto) 58.5 (45.5-73.1) % Lymph % (Auto) 30.8 (18.3-44.2) % [place] % (Auto) 8.8 H (2.6-8.5) % Eos % (Auto) 1.5 (0-4.4) % Baso % (Auto) 0.2 (0.2-1.2) % Lymph # (Auto) 1.44 (0.9-3.2) K/mm3 [place] # (Auto) 0.4 (0.1-0.6) K/mm3 Eos # (Auto) 0.1 (0-0.3) K/mm3 Baso # (Auto) 0.0 (0.0-0.1) K/mm3 Abs Immat Gran (auto) 0.01 (0.00-0.031) K/mm3 Absolute Neuts (auto) 2.7 (1.3-6.7) K/mm3 Absolute Nucleated RBC 0.000 (0.0-0.012) K/mm3 Band Neutrophils % 0 (0-6) % Nucleated RBC % 0.0 (0.0-0.2) % Platelet Estimate Adequate (Adequate) Hypochromasia 1+ Ovalocytes 1+ Schistocytes None seen Sodium 135 L (137-145) mmol/L Potassium 3.8 (3.4-5.0) mmol/L Chloride 104 (98-107) mmol/L Carbon Dioxide 21 L (22-30) mmol/L Anion Gap 10 (4-12) mmol/L BUN 3 L (7-17) mg/dL Creatinine 0.64 L (0.7-1.0) mg/dL Estim Creat Clear Calc 143 ml/min Estimated GFR > 60 (59 - ) Glucose 101 (65-110) mg/dL Calcium 9.4 (8.4-10.2) mg/dL Total Bilirubin 0.5 (0.2-1.3) mg/dL AST 18 (14-36) U/L ALT 13 (6-35) U/L Alkaline Phosphatase 78 (38-126) U/L Total Protein 7.6 (6.3-8.2) g/dL Albumin 4.3 (3.5-5.1) g/dL TSH 3.110 (0.465-4.680) uIU/mL Urine Color Yellow (Yellow) Urine Appearance Clear (Clear) Urine pH 6.5 (5.0-9.0) Ur Specific [place] 1.007 (1.001-1.035) Urine Protein Negative (Negative) mg/dL Urine Glucose (UA) Negative (Negative) mg/dL Urine Ketones Negative (Negative) mg/dL Ur Blood (Man) Negative (Negative) Urine Nitrate Negative (Negative) Urine Bilirubin Negative (Negative) Urine Urobilinogen 1.0 (<2.0) mg/dL Leukocyte Esterase Rfl Negative (Negative) TEE/UL POC Urine HCG, Qual Negative (Negative) Salicylates < 1.0 L (2-20) mg/dL Urine Opiates Screen Negative (Negative) Urine Methadone Screen Negative (Negative) Acetaminophen < 10 L (10-30) ug/mL Ur Barbiturates Screen Negative (Negative) Ur Phencyclidine Scrn Negative (Negative) Ur Amphetamine Screen Negative (Negative) U Benzodiazepines Scrn Negative (Negative) Urine Cocaine Screen Negative (Negative) U Cannabinoids Screen Negative (Negative) Ethyl Alcohol 34 (<10) mg/dL SARS-CoV-2 RNA (RT-PCR) (Negative) 12/21/24 Range/Units 02:22 WBC (4.5-10.0) K/mm3 RBC (4.2-5.4) M/mm3 Hgb (12.0-15.0) g/dL Hct (37.0-47.0) % MCV (80-100) fl MCH (26-34) pg MCHC (32-36) g/dl RDW (11.5-14.5) % Plt Count (150-375) k/mm3 MPV (7.4-10.4) fl Immature Gran % (Auto) (0-0.5) % Neut % (Auto) (45.5-73.1) % Lymph % (Auto) (18.3-44.2) % [place] % (Auto) (2.6-8.5) % Eos % (Auto) (0-4.4) % Baso % (Auto) (0.2-1.2) % Lymph # (Auto) (0.9-3.2) K/mm3 [place] # (Auto) (0.1-0.6) K/mm3 Eos # (Auto) (0-0.3) K/mm3 Baso # (Auto) (0.0-0.1) K/mm3 Abs Immat Gran (auto) (0.00-0.031) K/mm3 Absolute Neuts (auto) (1.3-6.7) K/mm3 Absolute Nucleated RBC (0.0-0.012) K/mm3 Band Neutrophils % (0-6) % Nucleated RBC % (0.0-0.2) % Platelet Estimate (Adequate) Hypochromasia Ovalocytes Schistocytes Sodium (137-145) mmol/L Potassium (3.4-5.0) mmol/L Chloride (98-107) mmol/L Carbon Dioxide (22-30) mmol/L Anion Gap (4-12) mmol/L BUN (7-17) mg/dL Creatinine (0.7-1.0) mg/dL Estim Creat Clear Calc ml/min Estimated GFR (59 - ) Glucose (65-110) mg/dL Calcium (8.4-10.2) mg/dL Total Bilirubin (0.2-1.3) mg/dL AST (14-36) U/L ALT (6-35) U/L Alkaline Phosphatase (38-126) U/L Total Protein (6.3-8.2) g/dL Albumin (3.5-5.1) g/dL TSH (0.465-4.680) uIU/mL Urine Color (Yellow) Urine Appearance (Clear) Urine pH (5.0-9.0) Ur Specific [place] (1.001-1.035) Urine Protein (Negative) mg/dL Urine Glucose (UA) (Negative) mg/dL Urine Ketones (Negative) mg/dL Ur Blood (Man) (Negative) Urine Nitrate (Negative) Urine Bilirubin (Negative) Urine Urobilinogen (<2.0) mg/dL Leukocyte Esterase Rfl (Negative) TEE/UL POC Urine HCG, Qual (Negative) Salicylates (2-20) mg/dL Urine Opiates Screen (Negative) Urine Methadone Screen (Negative) Acetaminophen (10-30) ug/mL Ur Barbiturates Screen (Negative) Ur Phencyclidine Scrn (Negative) Ur Amphetamine Screen (Negative) U Benzodiazepines Scrn (Negative) Urine Cocaine Screen (Negative) U Cannabinoids Screen (Negative) Ethyl Alcohol (<10) mg/dL SARS-CoV-2 RNA (RT-PCR) Negative (Negative) <Mona Montague MD - Last Filed: 12/21/24 07:19> Lab Results 12/21/24 12/21/24 12/21/24 Range/Units 01:40 01:53 02:13 WBC 4.7 (4.5-10.0) K/mm3 RBC 5.30 (4.2-5.4) M/mm3 Hgb 10.2 L (12.0-15.0) g/dL Hct 35.3 L (37.0-47.0) % MCV 66.6 L (80-100) fl MCH 19.2 L (26-34) pg MCHC 28.9 L (32-36) g/dl RDW 17.9 H (11.5-14.5) % Plt Count 226 (150-375) k/mm3 MPV 9.2 (7.4-10.4) fl Immature Gran % (Auto) 0.2 (0-0.5) % Neut % (Auto) 58.5 (45.5-73.1) % Lymph % (Auto) 30.8 (18.3-44.2) % [place] % (Auto) 8.8 H (2.6-8.5) % Eos % (Auto) 1.5 (0-4.4) % Baso % (Auto) 0.2 (0.2-1.2) % Lymph # (Auto) 1.44 (0.9-3.2) K/mm3 [place] # (Auto) 0.4 (0.1-0.6) K/mm3 Eos # (Auto) 0.1 (0-0.3) K/mm3 Baso # (Auto) 0.0 (0.0-0.1) K/mm3 Abs Immat Gran (auto) 0.01 (0.00-0.031) K/mm3 Absolute Neuts (auto) 2.7 (1.3-6.7) K/mm3 Absolute Nucleated RBC 0.000 (0.0-0.012) K/mm3 Band Neutrophils % 0 (0-6) % Nucleated RBC % 0.0 (0.0-0.2) % Platelet Estimate Adequate (Adequate) Hypochromasia 1+ Ovalocytes 1+ Schistocytes None seen Sodium 135 L (137-145) mmol/L Potassium 3.8 (3.4-5.0) mmol/L Chloride 104 (98-107) mmol/L Carbon Dioxide 21 L (22-30) mmol/L Anion Gap 10 (4-12) mmol/L BUN 3 L (7-17) mg/dL Creatinine 0.64 L (0.7-1.0) mg/dL Estim Creat Clear Calc 143 ml/min Estimated GFR > 60 (59 - ) Glucose 101 (65-110) mg/dL Calcium 9.4 (8.4-10.2) mg/dL Total Bilirubin 0.5 (0.2-1.3) mg/dL AST 18 (14-36) U/L ALT 13 (6-35) U/L Alkaline Phosphatase 78 (38-126) U/L Total Protein 7.6 (6.3-8.2) g/dL Albumin 4.3 (3.5-5.1) g/dL TSH 3.110 (0.465-4.680) uIU/mL Urine Color Yellow (Yellow) Urine Appearance Clear (Clear) Urine pH 6.5 (5.0-9.0) Ur Specific [place] 1.007 (1.001-1.035) Urine Protein Negative (Negative) mg/dL Urine Glucose (UA) Negative (Negative) mg/dL Urine Ketones Negative (Negative) mg/dL Ur Blood (Man) Negative (Negative) Urine Nitrate Negative (Negative) Urine Bilirubin Negative (Negative) Urine Urobilinogen 1.0 (<2.0) mg/dL Leukocyte Esterase Rfl Negative (Negative) TEE/UL POC Urine HCG, Qual Negative (Negative) Salicylates < 1.0 L (2-20) mg/dL Urine Opiates Screen Negative (Negative) Urine Methadone Screen Negative (Negative) Acetaminophen < 10 L (10-30) ug/mL Ur Barbiturates Screen Negative (Negative) Ur Phencyclidine Scrn Negative (Negative) Ur Amphetamine Screen Negative (Negative) U Benzodiazepines Scrn Negative (Negative) Urine Cocaine Screen Negative (Negative) U Cannabinoids Screen Negative (Negative) Ethyl Alcohol 34 (<10) mg/dL SARS-CoV-2 RNA (RT-PCR) (Negative) 12/21/24 Range/Units 02:22 WBC (4.5-10.0) K/mm3 RBC (4.2-5.4) M/mm3 Hgb (12.0-15.0) g/dL Hct (37.0-47.0) % MCV (80-100) fl MCH (26-34) pg MCHC (32-36) g/dl RDW (11.5-14.5) % Plt Count (150-375) k/mm3 MPV (7.4-10.4) fl Immature Gran % (Auto) (0-0.5) % Neut % (Auto) (45.5-73.1) % Lymph % (Auto) (18.3-44.2) % [place] % (Auto) (2.6-8.5) % Eos % (Auto) (0-4.4) % Baso % (Auto) (0.2-1.2) % Lymph # (Auto) (0.9-3.2) K/mm3 [place] # (Auto) (0.1-0.6) K/mm3 Eos # (Auto) (0-0.3) K/mm3 Baso # (Auto) (0.0-0.1) K/mm3 Abs Immat Gran (auto) (0.00-0.031) K/mm3 Absolute Neuts (auto) (1.3-6.7) K/mm3 Absolute Nucleated RBC (0.0-0.012) K/mm3 Band Neutrophils % (0-6) % Nucleated RBC % (0.0-0.2) % Platelet Estimate (Adequate) Hypochromasia Ovalocytes Schistocytes Sodium (137-145) mmol/L Potassium (3.4-5.0) mmol/L Chloride (98-107) mmol/L Carbon Dioxide (22-30) mmol/L Anion Gap (4-12) mmol/L BUN (7-17) mg/dL Creatinine (0.7-1.0) mg/dL Estim Creat Clear Calc ml/min Estimated GFR (59 - ) Glucose (65-110) mg/dL Calcium (8.4-10.2) mg/dL Total Bilirubin (0.2-1.3) mg/dL AST (14-36) U/L ALT (6-35) U/L Alkaline Phosphatase (38-126) U/L Total Protein (6.3-8.2) g/dL Albumin (3.5-5.1) g/dL TSH (0.465-4.680) uIU/mL Urine Color (Yellow) Urine Appearance (Clear) Urine pH (5.0-9.0) Ur Specific [place] (1.001-1.035) Urine Protein (Negative) mg/dL Urine Glucose (UA) (Negative) mg/dL Urine Ketones (Negative) mg/dL Ur Blood (Man) (Negative) Urine Nitrate (Negative) Urine Bilirubin (Negative) Urine Urobilinogen (<2.0) mg/dL Leukocyte Esterase Rfl (Negative) TEE/UL POC Urine HCG, Qual (Negative) Salicylates (2-20) mg/dL Urine Opiates Screen (Negative) Urine Methadone Screen (Negative) Acetaminophen (10-30) ug/mL Ur Barbiturates Screen (Negative) Ur Phencyclidine Scrn (Negative) Ur Amphetamine Screen (Negative) U Benzodiazepines Scrn (Negative) Urine Cocaine Screen (Negative) U Cannabinoids Screen (Negative) Ethyl Alcohol (<10) mg/dL SARS-CoV-2 RNA (RT-PCR) Negative (Negative) <River Khan MD - Last Filed: 12/21/24 11:51> ECG Data EKG #1: Attestation: I personally reviewed and interpreted this ECG as follows: <Mona Montague MD - Last Filed: 12/21/24 07:19> ECG completion date: 12/21/24 <Mona Montague MD - Last Filed: 12/21/24 07:19> ECG completion time: 02:05 <Mona Montague MD - Last Filed: 12/21/24 07:19> Interpretation: Sinus tachycardia at a rate of 104 beats per minute. LA interval 140. QRS 92. QT/QTC 313/413. Good R-wave progression across the precordial leads. T-wave flattening in 3 but upright in contiguous inferior leads. <Mona Montague MD - Last Filed: 12/21/24 07:19> Discharge Plan Discharge Clinical Impression: Microcytic anemia, Consumes alcohol Intentional prednisone overdose Qualifiers: Encounter type: initial encounter Qualified Code(s): T38.0X2A - Poisoning by glucocorticoids and synthetic analogues, intentional self-harm, initial encounter <Mona Montague MD - Last Filed: 12/21/24 07:19> Patient Disposition: Psychiatric Hosp <Mona Montague MD - Last Filed: 12/21/24 07:19> Condition: Stable <Mona Montague MD - Last Filed: 12/21/24 07:19> Patient Language: [place] <Mona Montague MD - Last Filed: 08/07/25 07:19> Prescriptions: No Action ferrous sulfate [FeroSul] 325 mg (65 mg iron) tablet azelastine 0.05 % drops amoxicillin-pot clavulanate 875-125 mg tablet 1 tablet PO Q12H 7 Days Qty: 14 0RF clindamycin HCl 300 mg capsule 300 mg PO Q8H Qty: 21 0RF ondansetron 4 mg tablet,disintegrating 4 mg PO Q8H Qty: 10 0RF methylprednisolone [Medrol (Isai)] 4 mg tablets,dose pack 4 mg PO DAILY Qty: 21 0RF fluticasone propionate [Flonase Allergy Relief] 50 mcg/actuation spray,suspension 1 spray intranasal DAILY Qty: 16 0RF Rx Instructions: administer into each nostril <Mona Montague MD - Last Filed: 12/21/24 07:19> Follow-up/Referrals: UNKNOWN,DOCTOR [Primary Care Provider] - <Mona Montague MD - Last Filed: 12/21/24 07:19>
[2024-12-21 03:04] LABS: SARS-CoV-2 RNA PCR Negative (Negative)
--- NOTE | 2024-12-21 06:22 | PC.NURSE ---
poison control updated on care.
--- NOTE | 2024-12-21 06:26 | PC.NURSE ---
Received report from LINDSEY Everett for cont. of care. Pt presents to ED after intentional overdose, per pt took 60pills of 40mg prednisone tablet. When asked why she took the pills, pt stated because everyone is mad at me, I did want to kill myself but then i didn't t want to anymore. Pt then stated she had friends over without her mom's permission and made her mad.
--- NOTE | 2024-12-21 07:19 | PC.NURSE ---
[facility] Control # [id number]
== END 2024-12-21 11:55 ==
PROVIDERS: Student in an Organized Health Care Education/Training Program; Emergency Provider Emergency Medicine
DX: T38.0X2A Poisoning by glucocorticoids and synthetic analogues, intentional self-harm, initial encounter (principal); D50.9 Iron deficiency anemia, unspecified; F10.90 Alcohol use, unspecified, uncomplicated; Y90.1 Blood alcohol level of 20-39 mg/100 ml; Z11.52 Encounter for screening for COVID-19; R94.31 Abnormal electrocardiogram [ECG] [EKG]; R00.0 Tachycardia, unspecified
CPT/HCPCS: 36415; 80053; 80143; 80179; 80307; 81003; 81025; 82077; 84443; 85025; 87635; 93005; 99285